=== PATIENT | female | born 1975 | race African-American/Black ===

== ENCOUNTER 2022-03-06 10:59 | Emergency (ER) | payer SELFPAY ==
[~2022-03-06] VITALS: Ht 157.5 cm; Wt 65.3 kg
[2022-03-06 11:15] VITALS: BP_SYST 140
--- NOTE | 2022-03-06 11:15 | NUR ---
Patient to ER bed 5 for evaluation. Side rails up. Report given to Charles CRUZ.
[2022-03-06 12:04] LABS: BASOPHILS % (AUTO) 0.8 % (0.0-2.0); EOSINOPHILS # (AUTO) 0.1 K/uL (0.0-0.4); HEMATOCRIT 42.1 % (36-48); HEMOGLOBIN 14.4 g/dL (12.0-16.0); LYMPHOCYTES % (AUTO) 34.5 % (20.5-51.5); MEAN CORPUSCULAR HEMOGLOBIN 31 pg (27-31); MEAN CORPUSCULAR HGB CONC 34 % (32-36); MEAN CORPUSCULAR VOLUME 89 fL (79.0-98.0); MONOCYTES # (AUTO) 0.4 K/uL (0.0-1.0); MONOCYTES % (AUTO) 7.6 % (1.7-9.3); NEUTROPHILS # (AUTO) 3.2 K/uL (1.8-7.7); NEUTROPHILS % (AUTO) 55.1 % (40.0-70.0); PLATELET COUNT (AUTO) 341 K/uL (130-430); RED BLOOD CELL COUNT(AUTO) 4.72 MIL/uL (4.2-6.2); RED CELL DISTRIBUTION WIDTH 14.2 % (9.0-15.0); WHITE BLOOD COUNT (AUTO) 5.8 K/uL (4.8-10.8)
[2022-03-06 12:19] LABS: ANION GAP 8 (5-15); CALCIUM 8.5 mg/dL (8.4-11.0); CHLORIDE 103 mmol/L (98-107); GLUCOSE 112 mg/dL (70-99); SODIUM SERUM 136 mmol/L (136-145); UREA NITROGEN, BLOOD 15 mg/dL (8-21)
--- NOTE | 2022-03-06 12:30 | NUR ---
Pt presented to ED AOx4, GCS 15 accompained by with report of acute memory loss. Pt seen by ED MD at bedside. NAD. Will continue to monitor.
[2022-03-06 12:31] LABS: ALANINE AMINOTRANSFERASE 24 U/L (12-78); ASPARTATE AMINOTRANSFERASE 26 U/L (10-37); TOTAL BILIRUBIN 0.3 mg/dL (0.0-1.0)
[2022-03-06 12:35] LABS: GFR AFRICAN AMERICAN 86 mL/min (>90)
[2022-03-06 13:49] VITALS: BP_SYST 138
--- NOTE | 2022-03-06 13:51 | NUR ---
Patient given written and verbal discharge instructions and verbalizes understanding. ER MD discussed with patient the results and treatment provided. Patient in stable condition. ID arm band removed. Patient educated on pain management and to follow up with PMD. Pain Scale . Opportunity for questions provided and answered. Medication side effect fact sheet provided. Pt D/C in no acute distress AOx4 GCS accompanied by . Self ambulated out of ED
== END 2022-03-06 13:51 | disposition home or self-care (01) ==
LOC: SED 10:59
DX: R55 Syncope and collapse (principal); R41.3 Other amnesia
CPT/HCPCS: 36415; 70450-TC; 71045; 76376; 80053; 82550; 83605; 84484; 85025; 93005; 99285